=== PATIENT | female | born 1975 | race Hispanic/Latino ===

== ENCOUNTER 2018-12-21 22:53 | Inpatient (IN) | payer OTHER ==
[~2018-12-21] VITALS: Ht 165.1 cm; Wt 75.0 kg
[2018-12-21] MEDS ORDERED: ONDANSETRON HCL 4 MG/2 ML VIAL ONE (23:25)
[2018-12-21] MEDS ORDERED: SODIUM CHLORIDE 0.9% 1000ML 1,000 ML IV ONE (23:25)
[2018-12-21 23:30] LABS: BASOPHILS % (AUTO) 0.5 % (0.0-5.0); EOSINOPHILS % (AUTO) 0.8 % (0.0-8.0); HEMATOCRIT 39.1 % (36-48); LYMPHOCYTES % (AUTO) 11.8 % (21.0-51.0); MEAN CORPUSCULAR HEMOGLOBIN 29.1 pg (27.0-33.0); MEAN CORPUSCULAR HGB CONC 33.6 g/dL (32.0-36.0); MEAN CORPUSCULAR VOLUME 86.6 fL (79-99); MONOCYTES % (AUTO) 4.9 % (3.0-13.0); PLATELET COUNT (AUTO) 332 K/uL (130-400); RED BLOOD CELL COUNT(AUTO) 4.52 MIL/uL (4.00-5.50); RED CELL DISTRIBUTION WIDTH 13.5 % (11.0-15.5); WHITE BLOOD COUNT (AUTO) 17.5 K/uL (4.8-10.8)
[2018-12-21 23:31] LABS: BILIRUBIN,URINE Negative (NEGATIVE); COLOR,URINE Yellow (YELLOW); GLUCOSE, URINE (UA) Negative (NEGATIVE); KETONES,URINE 15 mg/dL (NEGATIVE); LEUKOCYTE ESTERASE ,URINE Negative (NEGATIVE); NITRATE,URINE Negative (NEGATIVE); OCCULT BLOOD,URINE Negative (NEGATIVE); PROTEIN,URINE Negative (NEGATIVE)
[2018-12-21 23:37] LABS: APPEARANCE,URINE CLEAR (CLEAR); HCG,QUAL RESULT NEGATIVE (NEGATIVE)
[2018-12-21 23:38] LABS: CREATININE 0.9 mg/dL (0.5-1.5); POTASSIUM 3.7 mmol/L (3.5-5.1)
[2018-12-21] MEDS ORDERED: KETOROLAC TROMETHAMINE 30MG/ML ONE (23:42)
[2018-12-21 23:43] LABS: ALBUMIN 3.3 g/dL (3.5-5.0); BILIRUBIN,TOTAL 0.9 mg/dL (0.2-1.0)
[2018-12-21 23:48] LABS: AMPHET/METH SCREEN,URINE NEGATIVE (NEGATIVE); BARBITURATE SCREEN, URINE NEGATIVE (NEGATIVE); BENZODIAZEPINES SCREEN,URINE NEGATIVE (NEGATIVE); CANNABINOID SCREEN,URINE NEGATIVE (NEGATIVE); COCAINE SCREEN,URINE NEGATIVE (NEGATIVE); OPIATE SCREEN,URINE NEGATIVE (NEGATIVE); PHENCYCLIDINE SCREEN,URINE NEGATIVE (NEGATIVE)
[2018-12-22] MEDS ORDERED: MORPHINE SULFATE 4 MG/1ML SYG ONE (01:35)
[2018-12-22] MEDS ORDERED: ZOSYN 3.375GM+NS 50ML 50 ML IV ONE (01:35)
[2018-12-22] MEDS ORDERED: ONDANSETRON HCL 4 MG/2 ML VIAL IVP PRN (01:45)
[2018-12-22] MEDS ORDERED: MORPHINE SULFATE 2 MG/ML 1ML SYG IVP PRN (01:45)
[2018-12-22] MEDS ORDERED: MORPHINE SULFATE 4 MG/1ML SYG IV PRN (01:45)
[2018-12-22] MEDS ORDERED: KETOROLAC TROMETHAMINE 30MG/ML ONE (02:49)
[2018-12-22] MEDS ORDERED: SODIUM CHLORIDE 0.9% 1000ML 1,000 ML IV ONE (02:49)
[2018-12-22] MEDS ORDERED: MAG HYDROX/AL HYDROX/SIMETH ES 30 ML SUSP UDCUP ONE (03:00)
[2018-12-22] MEDS ORDERED: LIDOCAINE HCL 2% VISCOUS 15 ML UDCUP ONE (03:00)
[2018-12-22 03:15] VITALS: BP 92/52
[2018-12-22] MEDS: SODIUM CHLORIDE 0.9% 1000ML 1,000 ML IV SCH ×3 (04:20→20:25)
[2018-12-22] MEDS: METRONIDAZOLE 500MG/100ML BAG 100 ML IV SCH ×3 (06:17→21:34)
[2018-12-22 07:22] LABS: BASOPHILS % (AUTO) 0.3 % (0.0-5.0); EOSINOPHILS % (AUTO) 0.5 % (0.0-8.0); HEMATOCRIT 36.5 % (36-48); LYMPHOCYTES % (AUTO) 11.8 % (21.0-51.0); MEAN CORPUSCULAR HEMOGLOBIN 28.7 pg (27.0-33.0); MEAN CORPUSCULAR HGB CONC 33.1 g/dL (32.0-36.0); MEAN CORPUSCULAR VOLUME 86.7 fL (79-99); MONOCYTES % (AUTO) 6.3 % (3.0-13.0); NEUTROPHILS % (AUTO) 81.1 % (40.0-77.0); PLATELET COUNT (AUTO) 285 K/uL (130-400); RED BLOOD CELL COUNT(AUTO) 4.21 MIL/uL (4.00-5.50); RED CELL DISTRIBUTION WIDTH 13.5 % (11.0-15.5); WHITE BLOOD COUNT (AUTO) 12.4 K/uL (4.8-10.8)
[2018-12-22 07:30] VITALS: BP 96/56
[2018-12-22 07:36] LABS: ALANINE AMINOTRANSFERASE 192 U/L (12-78); ALBUMIN 2.8 g/dL (3.5-5.0); ASPARTATE AMINOTRANSFERASE 331 U/L (10-37); BILIRUBIN,TOTAL 1.9 mg/dL (0.2-1.0); CARBON DIOXIDE 25 mmol/L (21-32); CHLORIDE 106 mmol/L (101-111); CREATININE 0.8 mg/dL (0.5-1.5); GLOMERULAR FILTR. RATE CALC 83 mL/min (>60); GLUCOSE,RANDOM 127 mg/dL (70-105); SODIUM SERUM 138 mmol/L (136-145); TOTAL PROTEIN, SERUM 6.1 g/dL (6.0-8.3); UREA NITROGEN, BLOOD 9 mg/dL (7-18)
[2018-12-22] MEDS: FAMOTIDINE/PF 20 MG/2 ML VIAL IV SCH ×2 (08:58→20:24)
[2018-12-22] MEDS: KETOROLAC TROMETHAMINE 30MG/ML IV PRN ×2 (08:59→17:59)
[2018-12-22] MEDS: ZOSYN 3.375GM+NS 50ML 50 ML IV SCH ×2 (10:34→17:53)
[2018-12-22 11:00] VITALS: BP 101/59
[2018-12-22 16:00] VITALS: BP 107/59
--- NOTE | 2018-12-22 16:02 | NUR ---
JEN CALLEJAS NOTE MET W PATIENT WITH FAMILY AT [facility]; AAOX3, INDP, ACTIVE, NO DME; UNINSURED/UNEMPLOYED- IS CLIENT OF [facility] 'ALL MY LIFE' AND WILL FOLLOW UP THERE POST DISCHARGE. LIVES WITH SPOUSE [facility]O [facility] AND FAMILY WHO WILL SUPPLY TRANSPORT HOME CM TO FOLLOW Addendum: 12/22/18 at 1604 by JOAO PADRO RN CM Amended: Links added.
[2018-12-22 20:00] VITALS: BP 104/58
[2018-12-22 23:50] VITALS: BP 94/59
[2018-12-23] MEDS: ZOSYN 3.375GM+NS 50ML 50 ML IV SCH ×3 (01:53→17:24)
[2018-12-23 03:29] VITALS: BP 113/68
[2018-12-23] MEDS: METRONIDAZOLE 500MG/100ML BAG 100 ML IV SCH ×3 (05:44→22:30)
[2018-12-23 07:30] VITALS: BP 101/73
[2018-12-23] MEDS: FAMOTIDINE/PF 20 MG/2 ML VIAL IV SCH ×2 (10:15→20:51)
[2018-12-23] MEDS: SODIUM CHLORIDE 0.9% 1000ML 1,000 ML IV SCH ×2 (10:15→19:03)
[2018-12-23] MEDS: KETOROLAC TROMETHAMINE 30MG/ML IV PRN ×2 (10:34→17:25)
[2018-12-23 11:00] VITALS: BP 114/66
[2018-12-23 16:00] VITALS: BP 119/59
[2018-12-23 19:27] VITALS: BP 119/71
--- NOTE | 2018-12-23 20:07 | NUR ---
MD LESLY Pascual made rounds and assessed patient. Patient resting in bed with family members at bedside. Patient requesting to eat; explained her diagnose of diverticulitis and the reason for not having a diet at this time. Explained that IV fluids and antibiotics will be treated first. Asked patient if she had any other questions, patient states no at this time. No orders were obtained by MD Pascual.
[2018-12-23] MEDS: LEVOFLOXACIN 500 MG/D5W 100 ML 100 ML IV SCH (20:51)
[2018-12-23 23:28] VITALS: BP 111/56
[2018-12-24] MEDS: KETOROLAC TROMETHAMINE 30MG/ML IV PRN (02:11)
[2018-12-24] MEDS: SODIUM CHLORIDE 0.9% 1000ML 1,000 ML IV SCH ×3 (02:24→23:58)
[2018-12-24 03:36] VITALS: BP 106/60
[2018-12-24] MEDS: METRONIDAZOLE 500MG/100ML BAG 100 ML IV SCH ×3 (05:28→22:41)
[2018-12-24 05:49] LABS: HEMATOCRIT 32.4 % (36-48); MEAN CORPUSCULAR HEMOGLOBIN 29.2 pg (27.0-33.0); MEAN CORPUSCULAR HGB CONC 32.9 g/dL (32.0-36.0); MEAN CORPUSCULAR VOLUME 88.7 fL (79-99); PLATELET COUNT (AUTO) 251 K/uL (130-400); RED BLOOD CELL COUNT(AUTO) 3.65 MIL/uL (4.00-5.50); RED CELL DISTRIBUTION WIDTH 13.4 % (11.0-15.5); WHITE BLOOD COUNT (AUTO) 9.2 K/uL (4.8-10.8)
[2018-12-24 05:59] LABS: ALANINE AMINOTRANSFERASE 100 U/L (12-78); ALBUMIN 2.4 g/dL (3.5-5.0); ASPARTATE AMINOTRANSFERASE 34 U/L (10-37); BILIRUBIN,TOTAL 0.4 mg/dL (0.2-1.0); CARBON DIOXIDE 21 mmol/L (21-32); CHLORIDE 109 mmol/L (101-111); CREATININE 0.6 mg/dL (0.5-1.5); GLOMERULAR FILTR. RATE CALC 115 mL/min (>60); GLUCOSE,RANDOM 61 mg/dL (70-105); PHOSPHORUS 2.3 mg/dL (2.5-4.9); POTASSIUM 4.1 mmol/L (3.5-5.1); SODIUM SERUM 141 mmol/L (136-145); TOTAL PROTEIN, SERUM 5.6 g/dL (6.0-8.3); UREA NITROGEN, BLOOD 14 mg/dL (7-18)
[2018-12-24 07:58] VITALS: BP 102/55
[2018-12-24] MEDS ORDERED: MAGNESIUM SULFATE 1 GM in SODIUM CHLORIDE 0.9% 50 ML IV ONE (08:30)
[2018-12-24] MEDS: FAMOTIDINE/PF 20 MG/2 ML VIAL IV SCH ×2 (10:11→20:27)
[2018-12-24 11:51] VITALS: BP 108/59
[2018-12-24] MEDS: KETOROLAC TROMETHAMINE 15MG/ML IV SCH ×3 (12:25→23:59)
[2018-12-24 17:09] VITALS: BP 110/73
[2018-12-24 19:30] VITALS: BP 115/71
[2018-12-24] MEDS: LEVOFLOXACIN 500 MG/D5W 100 ML 100 ML IV SCH (20:27)
[2018-12-25] VITALS: BP 107/72
[2018-12-25 04:00] VITALS: BP 109/70
[2018-12-25 05:17] LABS: BASOPHILS % (AUTO) 0.5 % (0.0-5.0); EOSINOPHILS % (AUTO) 4.8 % (0.0-8.0); HEMATOCRIT 31.9 % (36-48); LYMPHOCYTES % (AUTO) 26.6 % (21.0-51.0); MEAN CORPUSCULAR HEMOGLOBIN 30.5 pg (27.0-33.0); MEAN CORPUSCULAR HGB CONC 34.3 g/dL (32.0-36.0); MONOCYTES % (AUTO) 6.9 % (3.0-13.0); NEUTROPHILS % (AUTO) 61.2 % (40.0-77.0); NUCLEATED RED BLOOD CELLS 0.1 % (0.0-0.19); PLATELET COUNT (AUTO) 242 K/uL (130-400); RED BLOOD CELL COUNT(AUTO) 3.59 MIL/uL (4.00-5.50); RED CELL DISTRIBUTION WIDTH 13.5 % (11.0-15.5); WHITE BLOOD COUNT (AUTO) 7.3 K/uL (4.8-10.8)
[2018-12-25 05:50] LABS: ALBUMIN 2.3 g/dL (3.5-5.0); CREATININE 0.6 mg/dL (0.5-1.5); MAGNESIUM 1.6 mg/dL (1.80-2.40)
[2018-12-25] MEDS: METRONIDAZOLE 500MG/100ML BAG 100 ML IV SCH ×3 (06:08→21:54)
[2018-12-25] MEDS: KETOROLAC TROMETHAMINE 15MG/ML IV SCH ×4 (06:08→23:37)
[2018-12-25 06:09] LABS: BILIRUBIN,DIRECT 0.1 mg/dL (0.0-0.3); BILIRUBIN,TOTAL 0.4 mg/dL (0.2-1.0); TOTAL PROTEIN, SERUM 5.5 g/dL (6.0-8.3)
[2018-12-25 08:00] VITALS: BP 106/66
[2018-12-25] MEDS: FAMOTIDINE/PF 20 MG/2 ML VIAL IV SCH ×2 (10:34→19:58)
[2018-12-25] MEDS: MAGNESIUM 2GM PREMIX 50ML 50 ML IV PRN (10:35)
[2018-12-25 11:11] VITALS: BP 114/68
[2018-12-25] MEDS: SODIUM CHLORIDE 0.9% 1000ML 1,000 ML IV SCH ×2 (13:58→19:58)
[2018-12-25 16:04] VITALS: BP 122/68
[2018-12-25] MEDS: LEVOFLOXACIN 500 MG/D5W 100 ML 100 ML IV SCH (19:58)
[2018-12-25 20:00] VITALS: BP 112/68
[2018-12-26 04:00] VITALS: BP 111/69
[2018-12-26] MEDS: SODIUM CHLORIDE 0.9% 1000ML 1,000 ML IV SCH ×2 (05:45→21:41)
[2018-12-26] MEDS: METRONIDAZOLE 500MG/100ML BAG 100 ML IV SCH ×3 (06:12→22:27)
[2018-12-26] MEDS: KETOROLAC TROMETHAMINE 15MG/ML IV SCH ×2 (06:13→11:44)
[2018-12-26] MEDS: MAGNESIUM 2GM PREMIX 50ML 50 ML IV PRN (07:12)
[2018-12-26 08:00] VITALS: BP 120/68
[2018-12-26] MEDS: FAMOTIDINE/PF 20 MG/2 ML VIAL IV SCH ×2 (10:36→21:33)
[2018-12-26 11:45] VITALS: BP 109/63
--- NOTE | 2018-12-26 12:48 | NUR ---
RD NOTIFICATION DIET: CLEAR LIQUIDS; WAS NPO X 6 DAYS. PT RECEIVED HER FIRST TRAY AT TIME OF VISIT. PT ENCOURAGED TO LET US KNOW IF SHE HAS ABDOMINAL PAIN WITH CLEAR LIQUIDS. PT UNABLE TO PASS BM SINCE 12/21, NOTED. SHE STATED SHE USUALLY HAS NO DIFFICULTIES/ NO HX OF CONSTIPATION IN THE PAST. SKIN INTACT, NO EDEMA NOTED. RD PENDING TO PROVIDE DIVERTICULITIS DIET AND NUTRITION EDUCATION; PROVIDE UPON FOLLOW UP. RECOMMEND CONTINUE CURRENT DIET ADVANCE TO FULL LIQUIDS TOLERATED, LASTLY GI SOFT/BLAND PENDING MEDICAL NUTRITION THERAPY RECOMMENDATIONS RECOMMEND A STOOL SOFTENER RD WILL CONTINUE TO MONITOR AND F/U Addendum: 12/26/18 at [address] Amended: Links added.
[2018-12-26 15:40] VITALS: BP 125/73
[2018-12-26 20:00] VITALS: BP 123/80
[2018-12-26] MEDS: LEVOFLOXACIN 500 MG/D5W 100 ML 100 ML IV SCH (21:33)
[2018-12-27] VITALS: BP 122/72
[2018-12-27 04:00] VITALS: BP 124/68
[2018-12-27 05:17] LABS: BASOPHILS % (AUTO) 0.4 % (0.0-5.0); EOSINOPHILS % (AUTO) 3.9 % (0.0-8.0); HEMATOCRIT 31.8 % (36-48); LYMPHOCYTES % (AUTO) 28.5 % (21.0-51.0); MEAN CORPUSCULAR HEMOGLOBIN 29.9 pg (27.0-33.0); MEAN CORPUSCULAR VOLUME 87.9 fL (79-99); MONOCYTES % (AUTO) 7.5 % (3.0-13.0); NEUTROPHILS % (AUTO) 59.7 % (40.0-77.0); PLATELET COUNT (AUTO) 247 K/uL (130-400); RED BLOOD CELL COUNT(AUTO) 3.61 MIL/uL (4.00-5.50); RED CELL DISTRIBUTION WIDTH 13.2 % (11.0-15.5); WHITE BLOOD COUNT (AUTO) 7.6 K/uL (4.8-10.8)
[2018-12-27 05:34] LABS: CREATININE 0.7 mg/dL (0.5-1.5); POTASSIUM 3.7 mmol/L (3.5-5.1)
[2018-12-27] MEDS: SODIUM CHLORIDE 0.9% 1000ML 1,000 ML IV SCH (05:45)
[2018-12-27] MEDS: METRONIDAZOLE 500MG/100ML BAG 100 ML IV SCH (05:45)
[2018-12-27 06:50] LABS: ERYTHROCYTE SEDIMENTATION RATE 30 MM/HR (0-20)
[2018-12-27] MEDS: MAGNESIUM 2GM PREMIX 50ML 50 ML IV PRN (06:52)
--- NOTE | 2018-12-27 07:45 | NUR ---
NOTE AAOX3. DENIES PAIN OR DISCOMFORT AT THIS TIME. CAME IN WITH C/O LLQ PAIN. DX DIVERTICULITIS. HAS BEEN NPO FOR A FEW DAYS AND YESTERDAY SHE WAS STARTED ON LIQUIDS AND ADVANCED TO SOFT BLAND GI DIET. HAS BEEN TOLERATING HER DIET WITHOUT REQUEST FOR ANYTHING FOR PAIN. BBS CLEAR. NO CHEST PAIN NO N/V NO ABDOMINAL DISCOMFORT. BOWEL SOUNDS PRESENT. ABDOMEN SOFT. POSSIBLE DC TODAY IF SHE TOLERATES HER DIET.
[2018-12-27 08:00] VITALS: BP 115/77
[2018-12-27] MEDS: FAMOTIDINE/PF 20 MG/2 ML VIAL IV SCH (11:34)
[2018-12-27 11:39] VITALS: BP 125/79
--- NOTE | 2018-12-27 13:30 | NUR ---
NOTE DR GRACE CAME TO ASSESS PATIENT AND SHE WILL BE GOING HOME TODAY.WILL PROCEED WITH DISCHARGE WHEN SHE IS READY WITH HER TRANSPORT.
[2018-12-27] MEDS ORDERED: LEVO500T2 PO (13:47)
[2018-12-27] MEDS ORDERED: METR500T PO (13:47)
--- NOTE | 2018-12-27 16:10 | NUR ---
NOTE DISCHARGE INSTRUCTIONS GIVEN AT THIS TIME. VERBALIZED UNDERSTANDING. REFER TO DC SUMMARY FOR DETAILS.
== END 2018-12-27 16:45 | disposition home or self-care (01) | DRG 392 ==
LOC: EDH 22:53 → EDHIP 12-22 01:41 → 3AH 12-22 03:14
PROVIDERS: ADMIT Internal Medicine; ATTEND Internal Medicine
DX: K57.92 Diverticulitis of intestine, part unspecified, without perforation or abscess without bleeding (principal); E86.9 Volume depletion, unspecified; R74.0 Nonspecific elevation of levels of transaminase and lactic acid dehydrogenase [LDH]; E83.42 Hypomagnesemia; D72.829 Elevated white blood cell count, unspecified; K71.6 Toxic liver disease with hepatitis, not elsewhere classified; F41.9 Anxiety disorder, unspecified; T36.0X5A Adverse effect of penicillins, initial encounter; Y92.89 Other specified places as the place of occurrence of the external cause; Z87.442 Personal history of urinary calculi; Z90.49 Acquired absence of other specified parts of digestive tract
CPT/HCPCS: 36415; 74176; 80048; 80053; 80076; 80305; 81003; 81025; 83690; 83735; 84100; 84145; 85025; 85027; 85651; 86140; G0378; J1885; J1956; J2270; J2405; J2543; J3475; J3490; J7030

== ENCOUNTER 2019-10-16 13:28 | Emergency (ER) | payer SELFPAY ==
[~2019-10-16 13:28] MED LIST: LEVO500T2 PO; METR500T PO
[2019-10-16] MEDS ORDERED: KETOROLAC TROMETHAMINE 30MG/ML ONE ×2 (14:35→14:47)
[2019-10-16 14:38] LABS: BASOPHILS % (AUTO) 0.3 % (0.0-5.0); EOSINOPHILS % (AUTO) 1.8 % (0.0-8.0); HEMATOCRIT 39.1 % (36-48); LYMPHOCYTES % (AUTO) 22.5 % (21.0-51.0); MEAN CORPUSCULAR VOLUME 87.9 fL (79-99); MONOCYTES % (AUTO) 6.4 % (3.0-13.0); NEUTROPHILS % (AUTO) 68.6 % (40.0-77.0); PLATELET COUNT (AUTO) 293 K/uL (130-400); RED BLOOD CELL COUNT(AUTO) 4.45 MIL/uL (4.00-5.50); RED CELL DISTRIBUTION WIDTH 12.9 % (11.0-15.5); WHITE BLOOD COUNT (AUTO) 11.1 K/uL (4.8-10.8)
[2019-10-16 14:50] LABS: CREATININE 0.7 mg/dL (0.5-1.5); POTASSIUM 3.9 mmol/L (3.5-5.1)
[2019-10-16 14:54] LABS: ALBUMIN 3.4 g/dL (3.5-5.0); BILIRUBIN,TOTAL 0.9 mg/dL (0.2-1.0); TOTAL PROTEIN, SERUM 7.3 g/dL (6.0-8.3)
[2019-10-16 15:06] LABS: HCG,QUAL RESULT NEGATIVE (NEGATIVE)
[2019-10-16 15:07] LABS: APPEARANCE,URINE Clear (CLEAR); BILIRUBIN,URINE Negative (NEGATIVE); COLOR,URINE Yellow (YELLOW); GLUCOSE, URINE (UA) Negative (NEGATIVE); KETONES,URINE Trace mg/dL (NEGATIVE); LEUKOCYTE ESTERASE ,URINE Negative (NEGATIVE); NITRATE,URINE Negative (NEGATIVE); OCCULT BLOOD,URINE Negative (NEGATIVE); PROTEIN,URINE Negative (NEGATIVE)
[2019-10-16 15:32] LABS: BACTERIA,URINE Rare /HPF (None Seen); MUCUS,URINE Few LPF (None Seen); RBC,URINE None Seen /HPF (0-1); SQUAMOUS EPITHELIAL CELL,UR 0-2 /HPF (0-2); WBC,URINE 0-1 /HPF (0-1)
[2019-10-16] MEDS ORDERED: ONDANSETRON HCL 4 MG/2 ML VIAL ONE (16:28)
[2019-10-16] MEDS ORDERED: MORPHINE SULFATE 2 MG/ML 1ML SYG ONE (16:29)
[2019-10-16] MEDS ORDERED: METRONIDAZOLE 500MG/100ML BAG 100 ML ONE (16:29)
== END 2019-10-16 17:57 | disposition home or self-care (01) ==
LOC: EDH 13:28
DX: K57.32 Diverticulitis of large intestine without perforation or abscess without bleeding (principal); Z90.49 Acquired absence of other specified parts of digestive tract; Z98.890 Other specified postprocedural states
CPT/HCPCS: 36415; 74176; 80053; 81003; 81025; 82150; 83690; 85025; 96361; 96365; 96375; 99285; J1885; J2405; J3490; 81001